=== PATIENT | male | born 1980 | race Caucasian/White ===

== ENCOUNTER 2023-05-12 14:07 | Observation (INO) | payer OTHER ==
--- NOTE | 2023-05-12 14:29 | ED ---
General Adult HPI - General Chief complaint: Alcohol Stated complaint: ETOH Time Seen by Provider: 05/12/23 14:11 Source: patient, EMS, RN notes reviewed, old records reviewed Mode of arrival: EMS Limitations: no limitations - History of Present Illness Initial comments: 43-year-old male presenting from [facility] with acute alcohol intoxication. Patient had attempted to check in to alcohol rehabilitation but was told that his alcohol level was too high. He does admit to heavy alcohol consumption prior to arrival. He was brought to the emergency department for evaluation. No vomiting. No fever. No chest pain - Related Data Home Medications Medication Instructions Recorded Confirmed Albuterol Sulfate [Ventolin HFA] 1 - 2 puff INHALATION RT-Q6H PRN 05/12/23 05/12/23 Fluoxetine (Unknown Dose) 1 dose PO DAILY 05/12/23 05/12/23 Symbicort (Uknown Strength) 1 dose PO BID 05/12/23 05/12/23 traZODone HCL [Desyrel] 50 mg PO DIRECTED PRN 05/12/23 05/12/23 Allergies Allergy/AdvReac Type Severity Reaction Status Date / Time Penicillins Allergy Anaphylaxis Verified 05/12/23 17:57 Review of Systems ROS Statement: Those systems with pertinent positive or pertinent negative responses have been documented in the HPI. ROS Other: All systems not noted in ROS Statement are negative. Past Medical History Past Medical History: COPD History of Any Multi-Drug Resistant Organisms: None Reported Past Surgical History: No Surgical Hx Reported Past Psychological History: Anxiety, PTSD Smoking Status: Current every day smoker Past Alcohol Use History: Abuse Past Drug Use History: None Reported General Exam Limitations: no limitations General appearance: alert, in no apparent distress, appears intoxicated Head exam: Present: atraumatic, normocephalic Eye exam: Present: normal appearance, PERRL ENT exam: Present: normal exam Neck exam: Present: normal inspection. Absent: tenderness, meningismus Respiratory exam: Present: normal lung sounds bilaterally. Absent: respiratory distress, wheezes Cardiovascular Exam: Present: regular rate, normal rhythm GI/Abdominal exam: Present: soft. Absent: distended, tenderness, guarding Extremities exam: Present: normal inspection, normal capillary refill. Absent: pedal edema Neurological exam: Present: alert, oriented X3, CN II-XII intact. Absent: motor sensory deficit Psychiatric exam: Present: normal affect, normal mood Skin exam: Present: warm, dry, intact. Absent: cyanosis, diaphoretic Course Vital Signs 05/12/23 05/12/23 14:09 14:45 Temperature 98.4 F Pulse Rate 99 96 Respiratory 18 17 Rate Blood Pressure 145/103 131/91 O2 Sat by Pulse 97 97 Oximetry Procedures - Orthopedic Splinting/Casting Injury #1 Side: left Lower Extremity Injury Location: foot Lower Extremity Immobilizer: posterior splint Medical Decision Making - Medical Decision Making Was pt. sent in by a medical professional or institution (, JUDE, DISTRIBUTION AGENT, urgent care, hospital, or intermediate...) When possible be specific @ Sent in by [facility] Did you speak to anyone other than the patient for history (EMS, parent, family, police, friend...)? What history was obtained from this source @ -No Did you review nursing and triage notes (agree or disagree)? Why? @ -I reviewed and agree with nursing and triage notes Were old charts reviewed (outside hosp., previous admission, EMS record, old EKG, old radiological studies, urgent care reports/EKG's, intermediate records)? Report findings @ -No old charts were reviewed Differential Diagnosis (chest pain, altered mental status, abdominal pain women, abdominal pain men, vaginal bleeding, weakness, fever, dyspnea, syncope, headache, dizziness, GI bleed, back pain, seizure, CVA, palpatations, mental health, musculoskeletal)? @ -Alcohol intoxication EKG interpreted by me (3pts min.). @ -As above X-rays interpreted by me (1pt min.). @ -None done CT interpreted by me (1pt min.). @ -None done U/S interpreted by me (1pt. min.). @ -None done What testing was considered but not performed or refused? (CT, X-rays, U/S, labs)? Why? @ -None What meds were considered but not given or refused? Why? @ -None Did you discuss the management of the patient with other professionals (professionals i.e. JUDE Kothari, DISTRIBUTION AGENT, lab, RT, psych nurse, geriatric social worker, sack sewer machine, teacher, chief credit officer, briefcase sewer)? Give summary @ [facility] Was smoking cessation discussed for >3mins.? @ -No Was critical care preformed (if so, how long)? @ -No Were there social determinants of health that impacted care today? How? (Homelessness, low income, unemployed, alcoholism, drug addiction, transp ortation, low edu. Level, literacy, decrease access to med. care, senior living, rehab)? @ -No Was there de-escalation of care discussed even if they declined (Discuss DNR or withdrawal of care, Hospice)? DNR status @ -No What co-morbidities impacted this encounter? (DM, HTN, Smoking, COPD, CAD, Cancer, CVA, ARF, Chemo, Hep., AIDS, mental health diagnosis, sleep apnea, morbid obesity)? @ Alcohol abuse Was patient admitted / discharged? Hospital course, mention meds given and route, prescriptions, significant lab abnormalities, going to OR and other pertinent info. @ -43-year-old male with acute alcohol intoxication. Patient has no family, [facility] will not take this patient due to the high alcohol level. His alcohol level is 390. He will be observed overnight awaiting sobriety. Undiagnosed new problem with uncertain prognosis? @ -No Drug Therapy requiring intensive monitoring for toxicity (Heparin, Nitro, Insulin, Cardizem)? @ -No Were any procedures done? @ -Yes, splint Diagnosis/symptom? @ -[Acute intoxication Acute, or Chronic, or Acute on Chronic? @ -[Acute Uncomplicated (without systemic symptoms) or Complicated (systemic symptoms)? @ -default Side effects of treatment? @ -No Exacerbation, Progression, or Severe Exacerbation? @ -No Poses a threat to life or bodily function? How? (Chest pain, USA, NV, pneumonia, PE, COPD, DKA, ARF, appy, cholecystitis, CVA, Diverticulitis, Homicidal, Suicidal, threat to staff... and all critical care pts) @ -[Low-risk - Lab Data Result diagrams: 05/12/23 14:40 05/12/23 14:40 Lab Results 05/12/23 05/12/23 Range/Units 14:40 14:40 WBC 6.5 (3.8-10.6) k/uL RBC 4.89 (4.30-5.90) m/uL Hgb 16.0 (13.0-17.5) gm/dL Hct 47.4 (39.0-53.0) % MCV 96.9 (80.0-100.0) fL MCH 32.7 (25.0-35.0) pg MCHC 33.7 (31.0-37.0) g/dL RDW 13.8 (11.5-15.5) % Plt Count 268 (150-450) k/uL MPV 7.2 Neutrophils % 50 % Lymphocytes % 42 % Monocytes % 3 % Eosinophils % 2 % Basophils % 1 % Neutrophils # 3.3 (1.3-7.7) k/uL Lymphocytes # 2.7 (1.0-4.8) k/uL Monocytes # 0.2 (0-1.0) k/uL Eosinophils # 0.1 (0-0.7) k/uL Basophils # 0.1 (0-0.2) k/uL Sodium 145 (137-145) mmol/L Potassium 4.2 (3.5-5.1) mmol/L Chloride 104 (98-107) mmol/L Carbon Dioxide 28 (22-30) mmol/L Anion Gap 13 mmol/L BUN 13 (9-20) mg/dL Creatinine 0.89 (0.66-1.25) mg/dL Est GFR (CKD-EPI)AfAm >90 (>60 ml/min/1.73 sqM) Est GFR (CKD-EPI)NonAf >90 (>60 ml/min/1.73 sqM) Glucose 121 H (74-99) mg/dL Calcium 9.4 (8.4-10.2) mg/dL Magnesium 2.5 H (1.6-2.3) mg/dL Total Bilirubin 0.5 (0.2-1.3) mg/dL AST 41 (17-59) U/L ALT 28 (4-49) U/L Alkaline Phosphatase 110 (38-126) U/L Total Protein 9.3 H (6.3-8.2) g/dL Albumin 4.9 (3.5-5.0) g/dL Serum Alcohol 390 H* mg/dL Disposition Clinical Impression: Alcoholic intoxication Disposition: ADMITTED IP TO THIS HOSP Condition: Stable Is patient prescribed a controlled substance at d/c from ED?: No Time of Disposition: 17:12
[2023-05-12] MEDS ORDERED: NICOTINE 21MG/24HR PATCH TRANSDERM STA (14:35)
[2023-05-12 14:46] LABS: Basophils # (A) 0.1 k/uL (0-0.2); Basophils % (A) 1 %; Eosinophils # (A) 0.1 k/uL (0-0.7); Eosinophils % (A) 2 %; HCT 47.4 % (39.0-53.0); Lymphocytes # (A) 2.7 k/uL (1.0-4.8); Lymphocytes % (A) 42 %; MCH 32.7 pg (25.0-35.0); MCHC 33.7 g/dL (31.0-37.0); MCV 96.9 fL (80.0-100.0); Mean Platelet Volume 7.2; Monocytes # (A) 0.2 k/uL (0-1.0); Monocytes % (A) 3 %; Neutrophils # (A) 3.3 k/uL (1.3-7.7); Neutrophils % (A) 50 %; Platelet Count 268 k/uL (150-450); RBC 4.89 m/uL (4.30-5.90); RDW 13.8 % (11.5-15.5); WBC 6.5 k/uL (3.8-10.6)
[2023-05-12] MEDS ORDERED: SODIUM CHLORIDE 0.9% 1,000 ML IV ONE (14:59)
[2023-05-12 15:02] LABS: ALT 28 U/L (4-49); AST 41 U/L (17-59); African American GFR (CKD) >90 (>60 ml/min/1.73 sqM); Albumin 4.9 g/dL (3.5-5.0); Alkaline Phosphatase 110 U/L (38-126); Anion Gap 13 mmol/L; Blood Urea Nitrogen 13 mg/dL (9-20); Calcium 9.4 mg/dL (8.4-10.2); Carbon Dioxide 28 mmol/L (22-30); Chloride 104 mmol/L (98-107); Glucose 121 mg/dL (74-99); Magnesium 2.5 mg/dL (1.6-2.3); Non-African American GFR(CKD) >90 (>60 ml/min/1.73 sqM); Potassium 4.2 mmol/L (3.5-5.1); Sodium 145 mmol/L (137-145); Total Bilirubin 0.5 mg/dL (0.2-1.3); Total Protein 9.3 g/dL (6.3-8.2)
[2023-05-12 16:00] LABS: Alcohol 390 mg/dL
[2023-05-12] MEDS ORDERED: NALOXONE 0.4 MG/ML 1 ML VIAL IV PRN (17:10)
[2023-05-12] MEDS ORDERED: LORazepam 2 MG/ML INJ IV PRN ×3 (17:11)
[2023-05-12] MEDS ORDERED: THIAMINE 100 MG/ML 2 ML VIAL IM STA (17:11)
--- NOTE | 2023-05-12 17:49 | P.HPIM ---
History of Present Illness H&P Date: 05/12/23 Patient is a 43-year-old male with alcohol dependence presented with alcohol intoxication. He normally drinks 4-5 years, but drank a pint of water,. He then decided to go to [facility], but he was referred to the hospital first for intoxication. He had previously been to [facility] in October, and was sober for a few months, but lost his house and then went back to drinking alcohol. Also smokes 1 pack per day, uses marijuana. Denies any chest pain, shortness of breath, abdominal pain, nausea or vomiting, urinary or bowel complaints. He also his left foot 5 days ago. In the ER, temperature was 98.4, pulse 99, respiratory rate 18, blood pressure 145/103, saturating at 97% on room air. WBC 6.5, hemoglobin 16, potassium 4.2, creatinine 0.89, magnesium 2.5, serum alcohol 390. Patient given IV fluids. Admitted for acute alcohol intoxication. Admitted for observation. Pertinent positives and negatives as discussed in HPI, a complete review of systems was performed and all other systems are negative. Patient seen and examined at bedside. Vital signs reviewed General: nontoxic, no distress, appears at stated age Derm: warm, dry Head: atraumatic, normocephalic, symmetric Eyes: EOMI, no lid lag, anicteric sclera, pupils equal round reactive to light ENT: Nose and ears atraumatic Neck: No thyromegaly, supple Mouth: no lip lesion, mucus membranes moist Cardiovascular: S1S2 reg, no murmur, no edema Lungs: clear to auscultation bilateral, no rhonchi, no rales, no wheeze, no accessory muscle use Abdominal: soft, nontender to palpation, no guarding, no appreciable organomegaly Ext: Left foot tenderness Neuro: CN II-XII grossly intact Psych: Alert, oriented, appropriate affect Assessment/Plan: Acute alcohol intoxication Alcohol dependence Nicotine dependence Hx of asthma Left foot pain -Continue IV fluids at 75 mL an hour -Thiamine and folic acid -Continue observation -Recommended further alcohol rehab at the time of discharge -Counseled regarding smoking cessation, continue nicotine patch -Restart home medication when reconcile -Left foot x-rays The patient is admitted with an anticipated less than 2 midnight stay as observation status for evaluation of alcohol intoxication. Surrogate decision-maker: None indicated CODE STATUS: Full code DVT prophylaxis: Lovenox Anticipated discharge date: Likely tomorrow Anticipated discharge place: [facility] A total of 55 minutes was spent on the care of this complex patient more than 50% of the time was spent in counseling and care coordination. Past Medical History Past Medical History: COPD History of Any Multi-Drug Resistant Organisms: None Reported Past Surgical History: No Surgical Hx Reported Past Psychological History: Anxiety, PTSD Smoking Status: Current every day smoker Past Alcohol Use History: Abuse Past Drug Use History: None Reported Medications and Allergies Allergies Allergy/AdvReac Type Severity Reaction Status Date / Time Penicillins Allergy Anaphylaxis Verified 05/12/23 14:13 Physical Exam Vitals: Vital Signs Temp Pulse Resp BP Pulse Ox 05/12/23 14:45 96 17 131/91 97 05/12/23 14:09 98.4 F 99 18 145/103 97 Intake and Output 05/12/23 05/12/23 05/12/23 06:59 14:59 22:59 Other: Weight 77.111 kg Results CBC & Chem 7: 05/12/23 14:40 05/12/23 14:40 Labs: Abnormal Lab Results - Last 24 Hours (Table) 05/12/23 Range/Units 14:40 Glucose 121 H (74-99) mg/dL Magnesium 2.5 H (1.6-2.3) mg/dL Total Protein 9.3 H (6.3-8.2) g/dL Serum Alcohol 390 H* mg/dL
--- NOTE | 2023-05-12 18:12 | XR ---
Left foot. HISTORY: Pain following trauma. COMPARISON: None TECHNIQUE: 3 views left foot were obtained. FINDINGS: There is a mildly displaced spiral fracture through the diaphysis of the fifth metatarsal. Remaining osseous structures are intact. Soft tissues are unremarkable. IMPRESSION: Fracture of the fifth metatarsal as described above.
[2023-05-12] MEDS: SODIUM CHLORIDE 0.9% 1,000 ML IV SCH (18:50)
[2023-05-13] MEDS: ACETAMINOPHEN TAB 500 MG TAB PO PRN ×4 (02:37→19:35)
[2023-05-13] MEDS: THIAMINE 100 MG TAB PO SCH (08:05)
[2023-05-13] MEDS: NICOTINE 21MG/24HR PATCH TRANSDERM SCH (08:05)
[2023-05-13] MEDS ORDERED: ALBUTEROL NEBULIZED 2.5 MG/3 ML INHALATION PRN (08:20)
[2023-05-13] MEDS: SODIUM CHLORIDE 0.9% 1,000 ML IV SCH ×2 (10:06→19:36)
[2023-05-13] MEDS ORDERED: LORazepam 2 MG/ML INJ IV PRN ×2 (11:55)
--- NOTE | 2023-05-13 12:27 | P.PN ---
Subjective Progress Note Date: 05/13/23 Hospital Course: 43-year-old male with alcohol dependence presented with alcohol intoxication. In the ER, temperature was 98.4, pulse 99, respiratory rate 18, blood pressure 145/103, saturating at 97% on room air. WBC 6.5, hemoglobin 16, potassium 4.2, creatinine 0.89, magnesium 2.5, serum alcohol 390. Patient given IV fluids. Admitted for acute alcohol intoxication. Now likely going through withdrawals. Subjective: Patient seen and examined at bedside. No acute events overnight. Has been hypertensive. Pertinent positives and negatives as discussed above, a complete review of systems was performed and all other systems are negative. Vitals Signs Reviewed. General: nontoxic, no distress, appears at stated age Derm: warm, dry Head: atraumatic, normocephalic, symmetric Eyes: EOMI, no lid lag, anicteric sclera Mouth: no lip lesion, mucus membranes moist Cardiovascular: S1S2 reg, no murmur Lungs: CTA bilateral, no rhonchi, no rales , no accessory muscle use Abdominal: soft, nontender to palpation, no guarding, no appreciable organomegaly Ext: no gross muscle atrophy, no edema, no contractures Neuro: CN II-XI grossly intact, no focal neuro deficits, mild tremor Psych: Alert, oriented, appropriate affect Data Reviewed Today: Pertinent Labs: No new labs Imaging: No new imaging Assessment and Plan: Acute alcohol intoxication Alcohol dependence Nicotine dependence Hx of asthma Left fifth metatarsal laterally displaced femoral fracture -Continue IV fluids at 75 mL an hour -Thiamine -CIWA scoring and PRN ativan -Counseled regarding smoking cessation, continue nicotine patch -Restart home medication when reconcile -splint in place, tylenol PRN DVT ppx: lovenox Code status: full code Anticipated discharge place: pending clinical course Anticipated discharge time: pending clinical course Objective - Vital Signs Vital signs: Vital Signs Temp 97.6 F 05/13/23 07:00 Pulse 100 05/13/23 10:04 Resp 17 05/13/23 08:00 BP 177/101 05/13/23 10:04 Pulse Ox 94 L 05/13/23 07:00 FiO2 Intake & Output 05/12/23 05/13/23 05/13/23 18:59 06:59 18:59 Intake Total 200 Balance 200 Weight 77.111 kg 77.111 kg Intake: Oral 200 Other: Voiding Method Toilet Toilet Urinal Urinal # Voids 1 - Labs CBC & Chem 7: 05/12/23 14:40 05/12/23 14:40 Labs: Abnormal Lab Results - Last 24 Hours (Table) 05/12/23 Range/Units 14:40 Glucose 121 H (74-99) mg/dL Magnesium 2.5 H (1.6-2.3) mg/dL Total Protein 9.3 H (6.3-8.2) g/dL Serum Alcohol 390 H* mg/dL
[2023-05-13] MEDS: LISINOPRIL-HCTZ 10-12.5 MG 1 EACH TAB PO SCH (15:09)
[2023-05-14 01:28] VITALS: RESP 16
[2023-05-14 09:02] VITALS: BP 104/70; PULSE 107; TEMP 98.7
[2023-05-14] MEDS: NICOTINE 21MG/24HR PATCH TRANSDERM SCH (09:06)
[2023-05-14] MEDS: THIAMINE 100 MG TAB PO SCH (09:06)
[2023-05-14] MEDS: LISINOPRIL-HCTZ 10-12.5 MG 1 EACH TAB PO SCH (09:06)
[2023-05-14] MEDS: SODIUM CHLORIDE 0.9% 1,000 ML IV SCH (09:10)
[2023-05-14 09:21] LABS: BUN/Creat Ratio 12.44 Ratio (12.00-20.00); Blood Urea Nitrogen 11.2 mg/dL (9.0-27.0); Carbon Dioxide 23.2 mmol/L (21.6-31.8); Chloride 97 mmol/L (96-109); Glucose 99 mg/dL (70-110); Potassium 3.9 mmol/L (3.5-5.5); Sodium 135 mmol/L (135-145)
--- NOTE | 2023-05-14 11:24 | P.DS ---
Providers Date of admission: 05/12/23 17:10 Expected date of discharge: 05/14/23 Attending physician: Gerri Hernandez MD Primary care physician: Stated None Hospital Course: Discharge Diagnosis: Acute alcohol intoxication Alcohol dependence Nicotine dependence Hx of asthma Left fifth metatarsal mildly displaced spiral fracture Hospital Course: 43-year-old male with alcohol dependence presented with alcohol intoxication. In the ER, temperature was 98.4, pulse 99, respiratory rate 18, blood pressure 145/103, saturating at 97% on room air. WBC 6.5, hemoglobin 16, potassium 4.2, creatinine 0.89, magnesium 2.5, serum alcohol 390. Patient given IV fluids. Admitted for acute alcohol intoxication. Was hypertensive, improved with 1 dose of ativan. Has not required any ativan for nearly 24 hours. Patient still not out of withdrawal period, however, since he has not been requiring any benzo and not complaining of anything else significant, he is stable for discharge. Does have a splint for fracture. Follow up with PCP. Patient seen and examined at bedside. Vital signs reviewed and stable. General: nontoxic, no distress, appears at stated age Derm: warm, dry Head: atraumatic, normocephalic, symmetric Eyes: EOMI, no lid lag, anicteric sclera Mouth: no lip lesion, mucus membranes moist Cardiovascular: S1S2 reg, no murmur Lungs: CTA bilateral, no rhonchi, no rales , no accessory muscle use Abdominal: soft, nontender to palpation, no guarding, no appreciable organomegaly Ext: no gross muscle atrophy, no edema, no contractures Neuro: CN II-XI grossly intact, no focal neuro deficits Psych: Alert, oriented, appropriate affect A total of 33 minutes of time were spent preparing this complex discharge summary. Patient was discharged on 05/14/23 and 9:48. Patient Condition at Discharge: Stable Plan - Discharge Summary New Discharge Prescriptions: New Thiamine [Vitamin B-1] 100 mg PO DAILY #90 tab Continue traZODone HCL [Desyrel] 50 mg PO DIRECTED PRN PRN Reason: SLEEP Symbicort (Uknown Strength) 1 dose PO BID Fluoxetine (Unknown Dose) 1 dose PO DAILY Albuterol Sulfate [Ventolin HFA] 1 - 2 puff INHALATION RT-Q6H PRN PRN Reason: Shortness Of Breath Discharge Medication List Albuterol Sulfate [Ventolin HFA] 1 - 2 puff INHALATION RT-Q6H PRN 05/12/23 [History] Fluoxetine (Unknown Dose) 1 dose PO DAILY 05/12/23 [History] Symbicort (Uknown Strength) 1 dose PO BID 05/12/23 [History] traZODone HCL [Desyrel] 50 mg PO DIRECTED PRN 05/12/23 [History] Thiamine [Vitamin B-1] 100 mg PO DAILY #90 tab 05/14/23 [Rx] Follow up Appointment(s)/Referral(s): None,Stated [Primary Care Provider] - 1-2 days Patient Instructions/Handouts: Alcohol Intoxication (DC), Abuse of Alcohol (DC) Activity/Diet/Wound Care/Special Instructions: Please see a PCP. Discharge Disposition: OTHER INSTITUTION NOT DEFINED
== END 2023-05-14 14:03 | disposition other institution (70) ==
LOC: EC 14:07 → 6NMEDSUR 17:10
PROVIDERS: ADMIT Internal Medicine; ATTEND Internal Medicine
DX: F10.229 Alcohol dependence with intoxication, unspecified (principal); Y90.8 Blood alcohol level of 240 mg/100 ml or more; F17.210 Nicotine dependence, cigarettes, uncomplicated; S92.352A Displaced fracture of fifth metatarsal bone, left foot, initial encounter for closed fracture; I10 Essential (primary) hypertension; J44.9 Chronic obstructive pulmonary disease, unspecified; F41.9 Anxiety disorder, unspecified; F43.10 Post-traumatic stress disorder, unspecified; Z88.0 Allergy status to penicillin; Z79.899 Other long term (current) drug therapy
CPT/HCPCS: 96361 ×3; 96372; 96374; 99285; 36415; 80053; 80048; 83735; 85025; 80320; 73630; G0378 ×3; S4990 ×3; J2060; J3411

== ENCOUNTER 2023-11-17 09:22 | Emergency (ER) | payer OTHER ==
--- NOTE | 2023-11-17 10:14 | ED ---
General Adult HPI - General Chief complaint: Upper Respiratory Infection Stated complaint: congestion Time Seen by Provider: 11/17/23 09:50 Source: patient, RN notes reviewed Mode of arrival: ambulatory Limitations: no limitations - History of Present Illness Initial comments: Patient is a pleasant 43-year-old male present to the emergency department with congestion and cough. Symptoms have been present for close to 2 weeks. Patient has congestion in his lungs and sinuses. Patient did have productive cough that was green, more yellow now. 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 Patient is having some dyspnea. Patient is a smoker however stopped recently secondary to breathing problems. Patient is h aving fevers chills and fatigue - Related Data Home Medications Medication Instructions Recorded Confirmed Albuterol Sulfate [Ventolin HFA] 1 - 2 puff INHALATION RT-Q6H PRN 05/12/23 05/12/23 Fluoxetine (Unknown Dose) 1 dose PO DAILY 05/12/23 05/12/23 Symbicort (Uknown Strength) 1 dose PO BID 05/12/23 05/12/23 traZODone HCL [Desyrel] 50 mg PO DIRECTED PRN 05/12/23 05/12/23 Previous Rx's Medication Instructions Recorded Thiamine [Vitamin B-1] 100 mg PO DAILY #90 tab 05/14/23 Albuterol Inhaler [Ventolin Hfa 2 puff INHALATION Q4HR PRN #1 each 11/17/23 Inhaler] Azithromycin [Zithromax Z Pack] 250 mg PO DAILY #6 tab 11/17/23 predniSONE [Deltasone] 20 mg PO BID #10 tab 11/17/23 Allergies Allergy/AdvReac Type Severity Reaction Status Date / Time Penicillins Allergy Anaphylaxis Verified 11/17/23 09:49 Review of Systems ROS Statement: Those systems with pertinent positive or pertinent negative responses have been documented in the HPI. ROS Other: All systems not noted in ROS Statement are negative. Constitutional: Reports: fever, chills Eyes: Denies: eye pain ENT: Reports: congestion. Denies: ear pain Respiratory: Reports: cough, dyspnea Cardiovascular: Denies: chest pain Endocrine: Reports: fatigue Gastrointestinal: Denies: abdominal pain Musculoskeletal: Denies: back pain Past Medical History Past Medical History: Asthma, COPD History of Any Multi-Drug Resistant Organisms: None Reported Past Surgical History: No Surgical Hx Reported Past Psychological History: Anxiety, PTSD Smoking Status: Current every day smoker Past Alcohol Use History: Abuse Past Drug Use History: None Reported General Exam Limitations: no limitations General appearance: alert, in no apparent distress Head exam: Present: normocephalic Eye exam: Present: normal appearance ENT exam: Present: normal oropharynx Neck exam: Present: normal inspection Respiratory exam: Present: rhonchi Cardiovascular Exam: Present: regular rate, normal rhythm GI/Abdominal exam: Present: soft. Absent: tenderness Extremities exam: Present: normal inspection Neurological exam: Present: alert Psychiatric exam: Present: normal affect, normal mood Skin exam: Present: normal color Course Vital Signs 11/17/23 11/17/23 11/17/23 09:45 11:08 11:15 Temperature 99.4 F Pulse Rate 93 92 96 Respiratory 20 Rate Blood Pressure 137/86 O2 Sat by Pulse 97 Oximetry Medical Decision Making - Medical Decision Making Was pt. sent in by a medical professional or institution (, PA, [employer], urgent care, hospital, or prison...) When possible be specific @ -No Did you speak to anyone other than the patient for history (EMS, parent, family, police, friend...)? What history was obtained from this source @ -No Did you review nursing and triage notes (agree or disagree)? Why? @ -I reviewed and agree with nursing and triage notes Were old charts reviewed (outside hosp., previous admission, EMS record, old EKG, old radiological studies, urgent care reports/EKG's, prison records)? Report findings @ -No old charts were reviewed Differential Diagnosis (chest pain, altered mental status, abdominal pain women, abdominal pain men, vaginal bleeding, weakness, fever, dyspnea, syncope, headache, dizziness, GI bleed, back pain, seizure, CVA, palpatations, mental health, musculoskeletal)? @ -Differential Dyspnea: Coronary syndrome, arrhythmia, tamponade, asthma, COPD, pulmonary embolism, pneumonia, pneumothorax, pulmonary effusion, anaphylaxis, diabetic ketoacidosis, flailed chest, pulmonary contusion, diaphragmatic rupture, anemia, neuromuscular, this is not meant to be an all-inclusive list. EKG interpreted by me (3pts min.). @ -As above X-rays interpreted by me (1pt min.). @ -Chest x-ray shows no acute process CT interpreted by me (1pt min.). @ -None done U/S interpreted by me (1pt. min.). @ -None done What testing was considered but not performed or refused? (CT, X-rays, U/S, labs)? Why? @ -None What meds were considered but not given or refused? Why? @ -None Did you discuss the management of the patient with other professionals (professionals i.e. Dr., PA, [employer], lab, RT, psych nurse, geriatric social work professor, balance staff staker, teacher, community arts officer, case coordinator)? Give summary @ -No Was smoking cessation discussed for >3mins.? @ -No Was critical care preformed (if so, how long)? @ -No Were there social determinants of health that impacted care today? How? (Homelessness, low income, unemployed, alcoholism, drug addiction, transportation, low edu. Level, literacy, decrease access to med. care, [facility], rehab)? @ -No Was there de-escalation of care discussed even if they declined (Discuss DNR or withdrawal of care, Hospice)? DNR status @ -No What co-morbidities impacted this encounter? (DM, HTN, Smoking, COPD, CAD, Cancer, CVA, ARF, Chemo, Hep., AIDS, mental health diagnosis, sleep apnea, morbid obesity)? @ -None Was patient admitted / discharged? Hospital course, mention meds given and route, prescriptions, significant lab abnormalities, going to OR and other pertinent info. @ -Patient reevaluated and feels much better following nebulizer. Patient is comfortable with discharge home. Patient is updated on results and need for follow-up. Patient provided prescriptions. Undiagnosed new problem with uncertain prognosis? @ -No Drug Therapy requiring intensive monitoring for toxicity (Heparin, Nitro, Insulin, Cardizem)? @ -No Were any procedures done? @ -No Diagnosis/symptom? @ -COPD exacerbation Acute, or Chronic, or Acute on Chronic? @ -Acute Uncomplicated (without systemic symptoms) or Complicated (systemic symptoms)? @ -Default Side effects of treatment? @ -No Exacerbation, Progression, or Severe Exacerbation? @ -Exacerbation Poses a threat to life or bodily function? How? (Chest pain, [place], [place], pneumonia, PE, COPD, DKA, ARF, appy, cholecystitis, CVA, Diverticulitis, Homicidal, Suicidal, threat to staff... and all critical care pts) @ -No - Lab Data Lab Results 11/17/23 Range/Units 10:04 Influenza Type A (PCR) Not Detected (Not Detectd) Influenza Type B (PCR) Not Detected (Not Detectd) RSV (PCR) Not Detected (Not Detectd) SARS-CoV-2 (PCR) Not Detected (Not Detectd) Disposition Clinical Impression: COPD exacerbation Disposition: HOME SELF-CARE Condition: Stable Instructions (If sedation given, give patient instructions): COPD (Chronic Obstructive Pulmonary Disease) (ED) Additional Instructions: Please do follow-up with your primary care physician in the next 1 or 2 days for recheck. Prescriptions have been sent to pharmacy. [id number] Tylenol or Motrin for fever. Return for difficulty breathing, worsening or changing symptoms or other concerns. Prescriptions: predniSONE [Deltasone] 20 mg PO BID #10 tab Albuterol Inhaler [Ventolin Hfa Inhaler] 2 puff INHALATION Q4HR PRN #1 each PRN Reason: Dyspnea Azithromycin [Zithromax Z Pack] 250 mg PO DAILY #6 tab Is patient prescribed a controlled substance at d/c from ED?: No Referrals: Micah Klein DO [Primary Care Provider] - 1-2 days Time of Disposition: 11:39
--- NOTE | 2023-11-17 10:44 | XR ---
EXAMINATION TYPE: XR chest 2V DATE OF EXAM: 11/17/2023 COMPARISON: NONE HISTORY: Cough TECHNIQUE: Frontal and lateral views of the chest are obtained. FINDINGS: There is no focal air space opacity, pleural effusion, or pneumothorax seen. The cardiac silhouette size is within normal limits. The osseous structures are intact. IMPRESSION: No acute pulmonary infiltrate.
[2023-11-17] MEDS: IPRATROPIUM-ALBUTEROL 3 ML NEB INHALATION STA (11:05)
[2023-11-17 11:55] VITALS: BP 103/68; PULSE 93; RESP 18; TEMP 98.1
== END 2023-11-17 11:49 | disposition home or self-care (01) ==
LOC: EC 09:22
DX: J44.1 Chronic obstructive pulmonary disease with (acute) exacerbation (principal); F17.200 Nicotine dependence, unspecified, uncomplicated; F41.9 Anxiety disorder, unspecified; Z79.899 Other long term (current) drug therapy; Z88.0 Allergy status to penicillin
CPT/HCPCS: 71046; 87636; 94640; 99283